=== PATIENT | female | born 1970 | race Caucasian/White ===

== ENCOUNTER → 2016-07-29 | Outpatient (CLI) | payer BC ==
[~2016-07-29] MED LIST: FOLIC ACID PO; TYLE325T5 PO; [UNRECOGNIZED DRUG - OTHER] PO
--- NOTE | 2016-07-30 04:34 | REP ---
Clinical: Abnormal uterine bleeding . Technique: Transabdominal pelvic ultrasound followed by transvaginal examination for better evaluation of the endometrium and adnexa with color Doppler evaluation of the ovaries. Findings: Bladder is unremarkable and measures 10.5 x 7.3 x 9.0 cm . Heterogeneous anteverted uterus measures 8.1 x 4.0 x 5.9 cm . The endometrial complex measures 15.3 mm thickness. No discrete uterine or endometrial abnormalities are appreciated. Bilateral ovaries are normal in appearance and vascularity without evidence for torsion. Right ovary measures 3.3 x 1.6 x 1.9 cm ; R I = 0.66 . Left ovary measures 2.9 x 2.1 x 2.4 cm with 2 cm simple physiologic cyst ; R I = 0.64 . No pelvic fluid or adnexal mass lesion . Impression: 1. Heterogeneous uterus with mildly thickened endometrial complex likely related to menstrual cycle. 2. Otherwise relatively normal pelvic ultrasound. Signed by Noam Alaniz MD 07/30/2016 04:26 A
== END ==
LOC: M SMT 12:59
PROVIDERS: ATTEND Obstetrics & Gynecology
DX: N92.1 Excessive and frequent menstruation with irregular cycle (principal)
CPT/HCPCS: 76830; 76856; 93976; G0123

== ENCOUNTER → 2016-08-06 | Outpatient (REF) | payer BC ==
[~2016-08-06] MED LIST changes: +LEVO50TA5 PO; +SERT50TA PO; +TIZA4CAP3 PO; +TOPI200T4 PO; +XANA1TAB2 PO
== END ==
LOC: M LAB REF 17:12
PROVIDERS: ATTEND Obstetrics & Gynecology
DX: N93.9 Abnormal uterine and vaginal bleeding, unspecified (principal)

== ENCOUNTER 2016-10-11 08:52 | Day surgery (SDC) | payer BC ==
[~2016-10-11] VITALS: Ht 165.1 cm; Wt 88.5 kg
[~2016-10-11 08:52] MED LIST changes: -TOPI200T4 PO; +TOPI200T7 PO
[2016-10-11] MEDS ORDERED: LR 1,000 ML IV ONE (09:00)
[2016-10-11] MEDS ORDERED: LIDOCAINE 1% MDV 20ML VIAL SC PRN (09:00)
[2016-10-11] MEDS ORDERED: LR 1,000 ML IV SCH ×2 (09:00→18:30)
[2016-10-11] MEDS ORDERED: PROPOFOL 200 MG/20 ML VIAL As Ordered ONE (09:07)
[2016-10-11] MEDS ORDERED: fentaNYL 250 MCG/5 ML INJECTION (J3010) As Ordered ONE (09:07)
[2016-10-11] MEDS ORDERED: LIDOCAINE 2% INJ 100 MG/5 ML SDV (FOR ANES.) As Ordered ONE (09:07)
[2016-10-11] MEDS ORDERED: ONDANSETRON 4MG/2ML VIAL (J2405) As Ordered ONE (09:07)
[2016-10-11] MEDS ORDERED: dexameTHASONE 4 MG/ML 1ML VIAL (J1100) As Ordered ONE (09:07)
[2016-10-11] MEDS ORDERED: ROCURONIUM BROMIDE 50 MG/5 ML VIAL/SYRINGE As Ordered ONE ×4 (09:07→15:50)
[2016-10-11] MEDS ORDERED: MIDAZOLAM INJ 2 MG/2 ML VIAL (J2250) As Ordered ONE (09:08)
[2016-10-11 09:37] LABS: MEAN CORPUSCULAR HEMOGLOBIN 31.9 pg (27.0-33.0); MEAN CORPUSCULAR HGB CONC 33.8 g/dl (32.0-36.5); MEAN CORPUSCULAR VOLUME 94.4 fl (80.0-96.0); WHITE BLOOD COUNT 6.6 K/mm3 (4.0-10.0)
[2016-10-11] MEDS ORDERED: CVS20TAB PO (09:42)
[2016-10-11 09:55] LABS: CONTROL LINE HCG INT CTR LINE PRESENT
[2016-10-11] MEDS ORDERED: MORPHINE 2 MG/ML 1ML SYRINGE As Ordered ONE (11:21)
[2016-10-11] MEDS ORDERED: MORPHINE 2 MG/ML 1ML SYRINGE IV ONE (11:30)
[2016-10-11] MEDS ORDERED: SILVER NITRATE APPLICATOR As Ordered ONE (14:38)
[2016-10-11] MEDS ORDERED: BUPIVACAINE HCL 0.25% 30 ML VIAL As Ordered ONE (14:39)
[2016-10-11] MEDS ORDERED: METHYLENE BLUE 0.5% (5MG/ML) 10 ML AMP (PROVAYBLUE)(Q9968 PER 1MG) As Ordered ONE (14:39)
[2016-10-11] MEDS ORDERED: SEVOFLURANE INHAL SOLN 250 ML BTL As Ordered ONE (14:42)
[2016-10-11] MEDS ORDERED: PHENYLephrine HCL 500 MCG/5 ML (100MCG/ML) SYRINGE (J2370) As Ordered ONE (15:17)
[2016-10-11] MEDS ORDERED: ePHEDrine SULFATE 25 MG/5 ML(5MG/ML) SYRINGE As Ordered ONE (15:34)
[2016-10-11] MEDS ORDERED: NEOSTIGMINE 1MG/ML 5 ML SYRINGE (J2710) As Ordered ONE (16:11)
[2016-10-11] MEDS ORDERED: HYDROmorphone HCL 2 MG/ML 1ML VIAL (J1170) As Ordered ONE (16:11)
[2016-10-11] MEDS ORDERED: KETOROLAC 60 MG/2 ML VIAL (J1885) As Ordered ONE (16:11)
[2016-10-11] MEDS ORDERED: GLYCOPYRROLATE INJ 0.2 MG/ML 2 ML VIAL As Ordered ONE (16:11)
[2016-10-11] MEDS ORDERED: PERCOCET 5MG/325MG TAB PO PRN ×2 (18:00)
[2016-10-11] MEDS ORDERED: PROMETHAZINE INJ 25 MG/ML VIAL (J2550) IV PRN (18:00)
[2016-10-11] MEDS ORDERED: tiZANidine 4 MG TAB PO PRN (18:00)
[2016-10-11] MEDS ORDERED: ONDANSETRON 4MG/2ML VIAL (J2405) IV PRN ×2 (18:00→18:30)
[2016-10-11] MEDS ORDERED: MORPHINE 2 MG/ML 1ML SYRINGE IV PRN (18:30)
[2016-10-11] MEDS ORDERED: fentaNYL 100 MCG/2 ML INJECTION (J3010) IV PRN (18:30)
[2016-10-11 19:15] VITALS: BP 133/61
[2016-10-11] MEDS: LR 1,000 ML IV SCH (19:26)
[2016-10-11 19:45] VITALS: BP 127/64
[2016-10-11 20:45] VITALS: BP 134/72
[2016-10-11] MEDS ORDERED: ALPRAZolam 0.5 MG TAB PO PRN (21:00)
[2016-10-11] MEDS ORDERED: TOPIRAMATE (TopAMAX) 100 MG TAB PO SCH (21:00)
[2016-10-11] MEDS: DOCUSATE SODIUM 100 MG CAP PO SCH (21:00)
[2016-10-11 21:45] VITALS: BP 136/66
[2016-10-11 22:45] VITALS: BP 131/60
[2016-10-11 23:45] VITALS: BP 117/59
[2016-10-11] MEDS: KETOROLAC 30 MG/ML VIAL (J1885) IV SCH (23:50)
[2016-10-12] MEDS: LR 1,000 ML IV SCH ×2 (02:00→10:00)
[2016-10-12 04:00] VITALS: BP 111/61
[2016-10-12] MEDS: KETOROLAC 30 MG/ML VIAL (J1885) IV SCH ×2 (05:55→11:17)
[2016-10-12] MEDS ORDERED: LEVOTHYROXINE 50MCG TABLET (0.05MG) PO SCH (06:00)
[2016-10-12 07:49] LABS: BASO % 0.1 % (0.0-1.0); EOS % 0.3 % (0.0-3.0); LARGE UNSTAINED CELL # 0.1 K/mm3 (0.0-0.4); LARGE UNSTAINED CELL % 0.5 % (0.0-4.0); LYMPH # 1.5 K/mm3 (1.5-4.5); LYMPH % 11.3 % (24.0-44.0); MEAN CORPUSCULAR HEMOGLOBIN 32.9 pg (27.0-33.0); MEAN CORPUSCULAR HGB CONC 34.1 g/dl (32.0-36.5); MEAN CORPUSCULAR VOLUME 96.5 fl (80.0-96.0); MONO # 0.5 K/mm3 (0.0-0.8); MONO % 3.9 % (0.0-5.0); NEUTROPHILS # 10.3 K/mm3 (1.8-7.7); NEUTROPHILS % 83.9 % (36.0-66.0); PLATELET COUNT, AUTOMATED 272 k/mm3 (150-450); RED CELL DISTRIBUTION WIDTH 12.2 % (11.5-14.5); WHITE BLOOD COUNT 12.3 K/mm3 (4.0-10.0)
[2016-10-12 08:00] VITALS: BP 106/54
[2016-10-12] MEDS: DOCUSATE SODIUM 100 MG CAP PO SCH (08:15)
[2016-10-12] MEDS ORDERED: OMEPRAZOLE 20 MG CAP PO SCH (09:00)
[2016-10-12] MEDS ORDERED: SERTRALINE HCL 50 MG TAB PO SCH (09:00)
[2016-10-12] MEDS ORDERED: OXYC1TAB23 PO ×2 (10:47→13:35)
[2016-10-12] MEDS ORDERED: IBUP-1022 PO (13:36)
[2016-10-12] MEDS ORDERED: COLA100C5 PO (13:36)
== END 2016-10-12 12:00 | disposition home or self-care (01) ==
LOC: M SDC 08:52 → M PED 18:29 → M SDC 10-12 12:00
PROVIDERS: ATTEND Obstetrics & Gynecology
DX: N92.0 Excessive and frequent menstruation with regular cycle (principal); N80.0 Endometriosis of uterus; F41.9 Anxiety disorder, unspecified; F32.9 Major depressive disorder, single episode, unspecified; E03.9 Hypothyroidism, unspecified; D64.9 Anemia, unspecified; Z91.040 Latex allergy status; Z79.899 Other long term (current) drug therapy
CPT/HCPCS: 36415; 58571; 84703; 85025; 85027; 86850; 86900; 86901; 88307; 96374; 96375; 96376; A6024; J0690; J1100; J1170; J1885; J2250; J2370; J2405; J2710; J3010; Q9968

== ENCOUNTER → 2020-11-20 | Outpatient (REF) | payer BC ==
[~2020-11-20] MED LIST changes: +COLA100C5 PO; +IBUP-1022 PO; +OMEP20TA2 PO; +OXYC1TAB23 PO; +SERT-141 PO; -SERT50TA PO; +TIZA4CAP PO; -TIZA4CAP3 PO
== END ==
LOC: M LAB REF 16:30
PROVIDERS: ATTEND Physician Assistant
DX: J06.9 Acute upper respiratory infection, unspecified (principal)

== ENCOUNTER → 2021-04-01 | Outpatient (REF) | LOC: M LABSMTC 10:22 | PROVIDERS: ATTEND Pediatrics | DX: Z11.52 Encounter for screening for COVID-19 (principal) ==

== ENCOUNTER → 2021-06-16 | Outpatient (REF) | payer OTHER ==
[2021-06-16 19:06] LABS: HEPATITIS C VIRUS ABY INDEX 0.2 INDEX (<0.8); HIV 1&2 SCREEN CENTAUR NEGATIVE (NEGATIVE)
== END ==
LOC: M LAB REF 16:51
PROVIDERS: ATTEND Internal Medicine
DX: Z02.1 Encounter for pre-employment examination (principal)

== ENCOUNTER → 2023-02-13 | Outpatient (REF) | payer OTHER | LOC: M LAB REF 09:20 | PROVIDERS: ATTEND Physician Assistant Medical | DX: B34.9 Viral infection, unspecified (principal) ==

== ENCOUNTER → 2023-07-04 | Outpatient (CLI) | payer BC, OTHER | LOC: M WUC 12:18 | PROVIDERS: ATTEND Internal Medicine | DX: M54.6 Pain in thoracic spine (principal) ==

== ENCOUNTER → 2023-10-14 | Outpatient (CLI) | payer BC | LOC: M WHC 14:25 | PROVIDERS: ATTEND Internal Medicine | DX: Z12.31 Encounter for screening mammogram for malignant neoplasm of breast (principal) ==

== ENCOUNTER → 2025-01-28 | Outpatient (REF) | payer BC ==
[~2025-01-28] MED LIST changes: -IBUP-1022 PO; +IBUP600T42 PO; +OMEP-611 PO; -OMEP20TA2 PO; +TOPI-14 PO; -TOPI200T7 PO
[2025-01-28 18:42] LABS: APPEARANCE, URINE HAZY (CLEAR); BACTERIA, URINE AUTO NEGATIVE (NEGATIVE); BILIRUBIN, URINE AUTO NEGATIVE (NEGATIVE); BLOOD, URINE BLOOD NEGATIVE (NEGATIVE); CALCIUM OXALATE CRYSTALS SMALL; GLUCOSE, URINE (UA) AUTO NEGATIVE (NEGATIVE); KETONE, URINE AUTO TRACE mg/dL (NEGATIVE); LEUKOCYTE ESTERASE, URINE AUTO NEGATIVE (NEGATIVE); MUCUS, URINE SMALL (NEGATIVE); NITRITE, URINE AUTO NEGATIVE (NEGATIVE); PROTEIN, URINE AUTO NEGATIVE (NEGATIVE); RBC, URINE AUTO 0 /HPF (0-3); SPECIFIC GRAVITY URINE AUTO 1.025 (1.002-1.035); SQUAMOUS EPITHELIAL CELL UR AU 2 /HPF (0-6); UROBILINOGEN, URINE AUTO 2.0 mg/dL (0.0-2.0); WBC, URINE AUTO 0 /HPF (0-3)
== END ==
LOC: M LAB REF 16:54
DX: N39.0 Urinary tract infection, site not specified (principal)

== ENCOUNTER → 2025-02-04 | Outpatient (CLI) | payer OTHER ==
[2025-02-04 10:56] LABS: BASO # 0.0 10^3/uL (0.0-0.2); BASO % 0.4 % (0.0-1.0); EOS # 0.1 10^3/uL (0.0-0.5); EOS % 0.6 % (0.0-3.0); LYMPH # 3.8 10^3/uL (1.5-5.0); LYMPH % 34.1 % (24.0-44.0); MONO # 0.7 10^3/uL (0.0-0.8); MONO % 5.9 % (2.0-8.0); NEUTROPHILS # 6.5 10^3/uL (1.5-8.5); NEUTROPHILS % 58.6 % (36.0-66.0); PLATELET COUNT, AUTOMATED 303 10^3/uL (150-450)
[2025-02-04 11:23] LABS: ALT/SGPT 18 U/L (7.0-40); AST/SGOT 18 U/L (<34); CALCIUM LEVEL 9.0 MG/DL (8.5-10.1); CARBON DIOXIDE LEVEL 27 MMOL/L (20-31); CHLORIDE LEVEL 105 MMOL/L (98-107); CREATININE FOR GFR 0.69 MG/DL (0.55-1.30); GLOMERULAR FILTRATION RATE > 90.0 (>51); POTASSIUM SERUM 4.6 MMOL/L (3.5-5.1); SODIUM LEVEL 137 MMOL/L (136-145)
== END ==
LOC: M LAB 10:13
PROVIDERS: ATTEND Physician Assistant Surgical
DX: N39.0 Urinary tract infection, site not specified (principal)

== ENCOUNTER → 2025-02-04 | Outpatient (CLI) | payer OTHER | LOC: M RAD 11:12 | PROVIDERS: ATTEND Physician Assistant | DX: R35.0 Frequency of micturition (principal); Q62.39 Other obstructive defects of renal pelvis and ureter ==